=== PATIENT | female | born 1970 | race African-American/Black ===

== ENCOUNTER 2017-08-21 14:54 | Emergency (ER) | payer SELFPAY ==
[~2017-08-21] VITALS: Ht 157.5 cm; Wt 75.0 kg
[~2017-08-21 14:54] MED LIST: ACETAMINOPHEN 325MG TABLET ONE
[2017-08-21] MEDS ORDERED: ACETAMINOPHEN 325MG TABLET PO ONE (15:45)
[2017-08-21] MEDS ORDERED: IBUPROFEN 600MG TABLET PO ONE (21:45)
[2017-08-22 07:30] VITALS: BP 178/92
== END 2017-08-22 12:40 | disposition left against medical advice (07) ==
LOC: ER 16:50
DX: M25.561 Pain in right knee (principal); M25.551 Pain in right hip; T14.8XXA Other injury of unspecified body region, initial encounter; Y09 Assault by unspecified means; I10 Essential (primary) hypertension; F17.200 Nicotine dependence, unspecified, uncomplicated; Z88.0 Allergy status to penicillin
CPT/HCPCS: 73502; 73562; 99284; L1830